=== PATIENT | male | born 1995 | race Caucasian/White ===

== ENCOUNTER 2017-05-18 13:10 | Emergency (ER) | payer OTHER ==
--- NOTE | 2017-05-18 13:39 | ER Document Report ---
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 Patient states that he was seen by his BAS 2 days ago and given amoxicillin for sinus infection. Patient states that over the last day his left ear has become painful with decreased hearing, and he noticed some discharge from the ear. Patient states that he did feel feverish 2 days ago, but has not had any fever symptoms since then. He is still eating and drinking without any difficulties. He has been using [id number] cold medication regularly. No other concerns or complaints at this time. He denies any drug allergies, daily medications, significant past medical history. His PCM is 1/6 BAS. Denies any smoking or illicit drug use. Denies any headaches, tinnitus, dizziness, facial swelling, sore throat, dysphagia, neck pain/stiffness, shortness of breath, wheezing, chest pain, syncope, palpitations, abdominal pain , nausea/vomiting/diarrhea, dysuria, muscle aches/joint pains, or rash. - ROS Notes: REVIEW OF SYSTEMS: CONSTITUTIONAL : Denies fever, chills, or sweats. Denies recent illness.-- see hpi EENT: see hpi. denies eye pain, redness, d/c. CARDIOVASCULAR: Denies chest pain. Denies palpitations or racing or irregular heart beat. Denies ankle edema. RESPIRATORY: see hpi GASTROINTESTINAL: Denies abdominal pain or distention. Denies nausea, vomiting , or diarrhea. Denies blood in vomitus, stools, or per rectum. Denies black, tarry stools. Denies constipation. GENITOURINARY: Denies difficulty urinating, painful urination, burning, frequency, blood in urine, or discharge. MUSCULOSKELETAL: Denies back or neck pain or stiffness. Denies joint pain or swelling. SKIN: Denies rash, lesions or sores. NEUROLOGICAL: Denies confusion or altered mental status. Denies passing out or loss of consciousness. Denies dizziness or lightheadedness. Denies headache. Denies weakness or paralysis or loss of use of either side. Denies problems with gait or speech. Denies sensory loss, numbness, or tingling. ALL OTHER SYSTEMS REVIEWED AND NEGATIVE. Dictation was performed using [employer] recognition software - DERM Skin Color: Normal Past Medical History - Social History Smoking Status: Never Smoker Family History: Reviewed & Not Pertinent Renal/ Medical History: Denies: Hx Peritoneal Dialysis Vertical Provider Document - CONSTITUTIONAL Agree With Documented VS: Yes Notes: PHYSICAL EXAMINATION: GENERAL: Well-appearing, well-nourished and in no acute distress. HEAD: Atraumatic, normocephalic. EYES: Pupils equal round and reactive to light, extraocular movements intact, sclera anicteric, conjunctiva are normal. ENT: Lt EAC erythemic with purulent discharge, TM does not appear to be perforated, but cannot see anterior 1/3. + tenderness. Rt EAC wnl. Nares patent and with yellow/thick discharge. oropharynx clear without exudates. No tonsilar hypertrophy or erythema. Moist mucous membranes. No sinus tenderness. NECK: Normal range of motion, supple without lymphadenopathy. No rigidity/ meningismus. LUNGS: Breath sounds clear to auscultation bilaterally and equal. No wheezes rales or rhonchi. HEART: Regular rate and rhythm without murmurs, rubs, gallops. ABDOMEN: Soft, nontender, nondistended abdomen. No guarding, no rebound. No masses appreciated. Normal bowel sounds present. No CVA tenderness bilaterally. Musculoskeletal: FROM to passive/active. Strength 5+/5. Extremities: No cyanosis, clubbing, or edema b/l. Peripheral pulses 2+. Capillary refill less than 3 seconds. PSYCH: Normal mood, normal affect. SKIN: Warm, Dry, normal turgor, no rashes or lesions noted. - INFECTION CONTROL TRAVEL OUTSIDE OF THE [place] IN LAST 30 DAYS: Yes COUNTRY TRAVELED TO/FROM: [facility] - RESPIRATORY O2 Sat by Pulse Oximetry: 100 Course - Re-evaluation Re-evalutation: 05/18/17 14:12 Patient is an afebrile, well-hydrated, 21-year-old active duty [employer] who presents to the ED with acute otitis externa and acute URI/sinusitis based on H& P today. Vitals are stable. PE otherwise unremarkable. Patient is already on amoxicillin from his [facility], which he will just continue to take as directed. I will give him Ciprodex drops to use for his left otitis externa. Conservative measures otherwise for symptoms. Recheck with his BAS in 2-3 days. Consider consult with ENT. Return to the ED with any worsening/concerning symptoms as reviewed in discharge. Patient is in agreement. Low suspicion for any meniere's, peritonsillar/pharyngeal abscess, Vel's, meningitis, sepsis, mastoiditis, or other systemic infection otherwise at this time. - Vital Signs Vital signs: Temp Pulse Resp BP Pulse Ox 97.6 F 75 16 136/62 H 100 05/18/17 13:11 05/18/17 13:11 05/18/17 13:11 05/18/17 13:11 05/18/17 13:11 Discharge - Discharge Clinical Impression: Acute otitis externa of left ear Qualifiers: Otitis externa type: unspecified type Qualified Code(s): H60.502 - Unspecified acute noninfective otitis externa, left ear URI (upper respiratory infection) Qualifiers: URI type: unspecified URI Qualified Code(s): J06.9 - Acute upper respiratory infection, unspecified Condition: Stable Disposition: HOME, SELF-CARE Instructions: Use of Ear Drops ([facility]), Otitis Externa ([facility]), Upper Respiratory Illness ([facility]) Additional Instructions: Use drops as directed Continue otc cold medication Maintain fluid intake Keep ears clean, avoid use of q-tips in your ears Take antibiotic as directed by your BAS Recheck with your BAS in 2-3 days Consider consult with ENT for ongoing/worsening symptoms Return to the ED with any worsening symptoms and/or development of fever, headache, tinnitus, dizziness, chest pain, palpitations, syncope, shortness of breath, trouble breathing, abdominal pain, n/v/d, or other worsening symptoms that are concerning to you. Prescriptions: Ciprofloxacin HCl/Dexameth [Ciprodex Otic Suspension 7.5 ml Bottle] 4 drop OT BID #1 bottle Forms: Elevated Blood Pressure Referrals: ENT [Provider Group] - Follow up as needed
[2017-05-18 13:59] VITALS: BP 136/62
== END 2017-05-18 13:54 | disposition home or self-care (01) ==
LOC: ER 13:10
DX: H60.502 Unspecified acute noninfective otitis externa, left ear (principal); J01.90 Acute sinusitis, unspecified; R05 Cough
CPT/HCPCS: 99282